=== PATIENT | female | born 1970 | race Caucasian/White ===

== ENCOUNTER 2017-03-07 21:45 | Emergency (ER) | payer MEDICARE, MEDICAID ==
[~2017-03-07] VITALS: Ht 170.2 cm; Wt 77.1 kg
[~2017-03-07 21:45] MED LIST: LISI10TA6; SIMV-8; TRIA25CA
[2017-03-07 21:48] VITALS: BP 133/90
== END 2017-03-07 22:14 | disposition left against medical advice (07) ==
LOC: ER 21:52
DX: M25.511 Pain in right shoulder (principal); W18.2XXA Fall in (into) shower or empty bathtub, initial encounter; Y93.E1 Activity, personal bathing and showering; Y99.8 Other external cause status; Y92.091 Bathroom in other non-institutional residence as the place of occurrence of the external cause; Z53.21 Procedure and treatment not carried out due to patient leaving prior to being seen by health care provider

== ENCOUNTER 2018-05-01 00:54 | Emergency (ER) | payer OTHER, MEDICAID ==
[~2018-05-01] VITALS: Ht 152.4 cm; Wt 77.1 kg
[2018-05-01] MEDS ORDERED: MORPHINE SULFATE 4 MG/ML SYR/VIAL IV ONE (02:30)
[2018-05-01] MEDS ORDERED: ONDANSETRON HCL 4 MG/2 ML VIAL IV ONE (02:30)
[2018-05-01] MEDS ORDERED: ETOMIDATE (2MG/ML) 20ML VIAL IV ONE ×2 (03:12→03:30)
[2018-05-01 06:45] VITALS: BP 118/54
[2018-05-01] MEDS ORDERED: HYDROcodone-ACET 5/325MG TAB PO ONE (07:30)
== END 2018-05-01 07:59 | disposition home or self-care (01) ==
LOC: ER 00:54 → EDBD 00:54 → ER 07:59
DX: S43.005A Unspecified dislocation of left shoulder joint, initial encounter (principal); J45.909 Unspecified asthma, uncomplicated; I10 Essential (primary) hypertension; E78.5 Hyperlipidemia, unspecified; Z91.030 Bee allergy status; F17.210 Nicotine dependence, cigarettes, uncomplicated; W19.XXXA Unspecified fall, initial encounter; Y93.89 Activity, other specified; Y99.8 Other external cause status; Y92.002 Bathroom of unspecified non-institutional (private) residence as the place of occurrence of the external cause
CPT/HCPCS: 23650; 73020; 73030; 73060; 96374; 96375; 99285; J2270; J2405

== ENCOUNTER 2018-06-23 12:22 | Emergency (ER) | payer OTHER, MEDICAID ==
[~2018-06-23] VITALS: Ht 154.9 cm; Wt 99.8 kg
[2018-06-23 14:35] VITALS: BP 124/77
[2018-06-23] MEDS ORDERED: ETOMIDATE (2MG/ML) 20ML VIAL IV ONE (14:45)
[2018-06-23] MEDS ORDERED: HYDROcodone-ACET 10/325MG TAB PO ONE (16:30)
== END 2018-06-23 17:12 | disposition home or self-care (01) ==
LOC: ER 12:24
DX: S43.004A Unspecified dislocation of right shoulder joint, initial encounter (principal); J45.909 Unspecified asthma, uncomplicated; E78.5 Hyperlipidemia, unspecified; I10 Essential (primary) hypertension; F41.9 Anxiety disorder, unspecified; F17.210 Nicotine dependence, cigarettes, uncomplicated; Z91.030 Bee allergy status; Z98.51 Tubal ligation status; X58.XXXA Exposure to other specified factors, initial encounter; Y93.89 Activity, other specified; Y92.89 Other specified places as the place of occurrence of the external cause; Y99.8 Other external cause status
CPT/HCPCS: 23650; 73020; 73030; 94761

== ENCOUNTER 2018-06-29 15:05 | Emergency (ER) | payer OTHER, MEDICAID ==
[~2018-06-29] VITALS: Ht 165.1 cm; Wt 90.7 kg
[2018-06-29 19:02] VITALS: BP 157/82
[2018-06-29] MEDS ORDERED: KETOROLAC TROMETH 60MG/2ML VIAL IM ONE (20:30)
[2018-06-29] MEDS ORDERED: HYDROcodone-ACET 10/325MG TAB PO ONE (20:30)
== END 2018-06-29 21:06 | disposition home or self-care (01) ==
LOC: EDBD 15:05 → ER 15:05
DX: S42.291D Other displaced fracture of upper end of right humerus, subsequent encounter for fracture with routine healing (principal); F17.210 Nicotine dependence, cigarettes, uncomplicated; I10 Essential (primary) hypertension; E78.5 Hyperlipidemia, unspecified; J45.909 Unspecified asthma, uncomplicated; Z79.899 Other long term (current) drug therapy; X58.XXXD Exposure to other specified factors, subsequent encounter
CPT/HCPCS: 73030; 96372; 99284; J1885

== ENCOUNTER 2018-07-24 10:39 | Emergency (ER) | payer OTHER, MEDICAID ==
[~2018-07-24] VITALS: Ht 154.9 cm; Wt 99.8 kg
[2018-07-24 10:58] VITALS: BP 117/67
[2018-07-24] MEDS ORDERED: ETOMIDATE (2MG/ML) 20ML VIAL IV ONE (12:00)
== END 2018-07-24 13:09 | disposition home or self-care (01) ==
LOC: ER 10:39 → EDBD 10:39 → ER 13:09
DX: S43.084A Other dislocation of right shoulder joint, initial encounter (principal); J45.909 Unspecified asthma, uncomplicated; E78.5 Hyperlipidemia, unspecified; I10 Essential (primary) hypertension; Z79.899 Other long term (current) drug therapy; X58.XXXA Exposure to other specified factors, initial encounter; Y93.89 Activity, other specified; Y99.8 Other external cause status; Y92.89 Other specified places as the place of occurrence of the external cause
CPT/HCPCS: 23650; 73020; 94761

== ENCOUNTER 2018-08-29 15:34 | Emergency (ER) | payer OTHER, MEDICAID ==
[~2018-08-29] VITALS: Ht 154.9 cm; Wt 101.2 kg
[2018-08-29] MEDS ORDERED: ONDANSETRON HCL 4 MG/2 ML VIAL IV ONE (16:15)
[2018-08-29] MEDS ORDERED: MORPHINE SULFATE 4 MG/ML SYR/VIAL IV ONE (16:15)
[2018-08-29] MEDS ORDERED: MIDAZOLAM HCL 1MG/1ML-2 ML VIAL IV ONE (16:15)
[2018-08-29 16:17] VITALS: BP 134/90
[2018-08-29] MEDS ORDERED: ETOMIDATE (2MG/ML) 20ML VIAL IV ONE ×2 (16:58→17:00)
[2018-08-29] MEDS ORDERED: HYDROcodone-ACET 10/325MG TAB PO ONE (17:15)
== END 2018-08-29 18:15 | disposition home or self-care (01) ==
LOC: ER 15:34 → EDBD 15:34 → ER 18:15
DX: S43.004A Unspecified dislocation of right shoulder joint, initial encounter (principal); J45.909 Unspecified asthma, uncomplicated; E78.5 Hyperlipidemia, unspecified; I10 Essential (primary) hypertension; F17.210 Nicotine dependence, cigarettes, uncomplicated; Z98.51 Tubal ligation status; Z79.899 Other long term (current) drug therapy; X58.XXXA Exposure to other specified factors, initial encounter; Y93.89 Activity, other specified; Y92.89 Other specified places as the place of occurrence of the external cause; Y99.8 Other external cause status
CPT/HCPCS: 23650; 73020; 73030; 96374; 96375; 99284; J2250; J2270; J2405

== ENCOUNTER 2019-10-20 18:42 | Emergency (ER) | payer OTHER, MEDICAID ==
[~2019-10-20] VITALS: Ht 154.9 cm; Wt 90.7 kg
[2019-10-20 19:07] VITALS: BP 111/67
[2019-10-20 19:40] LABS: Basophils # (auto) 0.1 uL; Eosinophils # (auto) 0.3 uL; Eosinophils % (auto) 2.6 % (0.0-7.0); Hemoglobin 11.6 g/dL (12.2-16.2); Lymphocytes # (auto) 3.6 uL; Lymphocytes % (auto) 34.7 % (10.0-50.0); Mean Corpuscular Hemoglobin 30.9 pg (28.0-32.0); Mean Corpuscular Hgb Conc. 33.1 g/dL (32.0-36.0); Mean Corpuscular Volume 93.3 fL (80.0-100.0); Monocytes # (auto) 0.9 uL; Monocytes % (auto) 8.5 % (0.0-12.0); Neutrophils # (auto) 5.5 uL; Neutrophils % (auto) 53.2 % (37.0-80.0); Platelet Count (auto) 274 10^3/uL (140-450); Red Blood Cells 3.75 10^6/uL (4.0-5.20); Red Cell Distribution Width 14.4 % (11.8-14.3); White Blood Cell 10.3 10^3/uL (4.4-10.8)
[2019-10-20 19:53] LABS: Alanine Aminotransferase 38 U/L (13-56); Albumin 3.4 g/dL (3.4-5.0); Anion Gap 7 (5-15); Aspartate Aminotransferase 24 U/L (15-37); BUN/Creatinine Ratio 20.5; Blood Urea Nitrogen 18 mg/dL (7-18); Calcium 8.8 mg/dL (8.5-10.1); Carbon Dioxide 27 mmol/L (21-32); Chloride 103 mmol/L (98-107); GFR African American 88 mL/min; GFR Non-African American 73 mL/min; Glucose 134 mg/dL (74-106); Potassium 3.7 mmol/L (3.5-5.1); Sodium 137 mmol/L (136-145)
[2019-10-20 19:58] LABS: Alkaline Phosphatase 58 U/L (45-117); Bilirubin, Total 0.2 mg/dL (0.2-1.0); INR 1.07 (0.9-1.15); Partial Thromboplastin Time 25.9 sec (23.64-32.05); Total Protein 7.8 g/dL (6.4-8.2)
== END 2019-10-20 22:23 | disposition left against medical advice (07) ==
LOC: EDBD 18:42 → ER 18:42
DX: R06.02 Shortness of breath (principal); Z53.21 Procedure and treatment not carried out due to patient leaving prior to being seen by health care provider
CPT/HCPCS: 36415; 80053; 83880; 84484; 85025; 85610; 85730; 93005; J7042

== ENCOUNTER 2021-01-20 20:41 | Inpatient (IN) | payer OTHER, MEDICAID ==
[~2021-01-20] VITALS: Ht 157.5 cm; Wt 112.0 kg
[~2021-01-20 20:41] MED LIST changes: +LISI-648; -LISI10TA6
[2021-01-20] MEDS ORDERED: LORazepam 2MG/ML-1ML VIAL IM ONE (21:00)
[2021-01-20] MEDS ORDERED: HALOPERIDOL LACTATE 5 MG/ML INJ VIAL IM ONE (21:00)
[2021-01-20] MEDS ORDERED: diphenhdrAMINE HCL 50 MG/1 ML VL IM ONE (21:00)
[2021-01-20] MEDS ORDERED: SODIUM CHLORIDE 0.9% 3,000 ML IV ONE (21:30)
[2021-01-20 22:14] LABS: Basophils # (auto) 0 10 ^3/uL (0-0.2); Eosinophils # (auto) 0 10 ^3/uL (0-0.8); Hematocrit 38.5 % (36.0-46.0); Hemoglobin 12.1 g/dL (12.2-16.2); Lymphocytes # (auto) 12.9 10 ^3/uL (0.4-5.4); Mean Corpuscular Hemoglobin 30.5 pg (28.0-32.0); Mean Corpuscular Hgb Conc. 31.3 g/dL (32.0-36.0); Mean Corpuscular Volume 97.4 fL (80.0-100.0); Monocytes # (auto) 4.3 10 ^3/uL (0-1.3); Monocytes % (auto) 16.7 % (0.0-12.0); Neutrophils # (auto) 8.6 10 ^3/uL (1.6-8.6); Neutrophils % (auto) 33.3 % (37.0-80.0); Nucleated Red Blood Cells % 0.1 %; Platelet Count (auto) 314 10^3/uL (140-450); Red Blood Cells 3.95 10^6/uL (4.0-5.20); White Blood Cell 25.7 10^3/uL (4.4-10.8)
[2021-01-20 22:29] LABS: Alanine Aminotransferase 112 U/L (13-56); Albumin 3.5 g/dL (3.4-5.0); Anion Gap 16 (5-15); Blood Alcohol < 3.0 mg/dL (0-5); Blood Urea Nitrogen 18 mg/dL (7-18); Calcium 8.5 mg/dL (8.5-10.1); Carbon Dioxide 19 mmol/L (21-32); Chloride 101 mmol/L (98-107); Potassium 4.6 mmol/L (3.5-5.1); Salicylate < 1.7 mg/dL (2.8-20.0); Sodium 136 mmol/L (136-145)
[2021-01-20 22:30] LABS: Acetaminophen < 2.0 ug/mL (10-30)
[2021-01-20 22:40] LABS: Alkaline Phosphatase 66 U/L (45-117); Aspartate Aminotransferase 102 U/L (15-37); BUN/Creatinine Ratio 11.5; Bilirubin, Total 0.2 mg/dL (0.2-1.0); GFR African American 45 mL/min; GFR Non-African American 37 mL/min; Total Protein 7.9 g/dL (6.4-8.2)
[2021-01-20 22:50] LABS: Glucose 479 mg/dL (74-106)
[2021-01-20 23:52] LABS: Urine Bacteria NONE SEEN /hpf (None Seen); Urine Blood 1+ /uL (Negative); Urine Mucus FEW (None Seen); Urine Specific Gravity 1.013 (1.001-1.035); Urine WBC 10 /hpf (0 - 5)
[2021-01-21 00:02] LABS: Alcohol, Urine < 3.0 mg/dL (0-10); Amphetamine Screen, Urine NEGATIVE (NEGATIVE); Barbiturate Scree,Urine NEGATIVE (NEGATIVE); Benzodiazephine Screen, Urine NEGATIVE (NEGATIVE); Cannabinoid Screen, Urine NEGATIVE (NEGATIVE); Cocaine Screen, Urine NEGATIVE (NEGATIVE); Opiate Scree,Urine NEGATIVE (NEGATIVE); Phencyclidine Screen, Urine NEGATIVE (NEGATIVE)
[2021-01-21] MEDS ORDERED: HYDROcodone-ACET 5/325MG TAB PO PRN (04:45)
[2021-01-21] MEDS ORDERED: NITROGLYCERIN 0.4 MG SL TAB SL PRN (04:45)
[2021-01-21] MEDS ORDERED: LORazepam 2MG/ML-1ML VIAL IV PRN (04:45)
[2021-01-21] MEDS ORDERED: ONDANSETRON HCL 4 MG/2 ML VIAL IV PRN (04:45)
[2021-01-21] MEDS ORDERED: DOCUSATE SOD 100 MG CAP PO PRN (04:45)
[2021-01-21] MEDS ORDERED: MORPHINE SULF INJ 2 MG/ML SYRINGE 1ML IV PRN (04:45)
[2021-01-21] MEDS ORDERED: DEXTROSE (50%) 50ML SYRG IV PRN (04:45)
[2021-01-21] MEDS: SODIUM CHLORIDE 0.9% 1,000 ML IV SCH ×2 (06:11→16:00)
[2021-01-21] MEDS: cefTRIAXone 1GM/50ML D5W 50 ML IV SCH (06:11)
[2021-01-21] MEDS: InsuLIN REG 1unit/0.01ml Soln (100units/ml) SC SCH ×4 (06:59→21:35)
[2021-01-21] MEDS: ACCU-CHEK COMFORT CURVE STRIP VI SCH ×4 (07:03→21:35)
[2021-01-21 07:16] LABS: Basophils # (auto) 0.1 10 ^3/uL (0-0.2); Basophils % (auto) 0.3 % (0.0-2.0); Eosinophils # (auto) 0 10 ^3/uL (0-0.8); Eosinophils % (auto) 0.1 % (0.0-7.0); Hematocrit 35.2 % (36.0-46.0); Hemoglobin 11.4 g/dL (12.2-16.2); Lymphocytes # (auto) 1.8 10 ^3/uL (0.4-5.4); Lymphocytes % (auto) 9.2 % (10.0-50.0); Mean Corpuscular Hemoglobin 30.5 pg (28.0-32.0); Mean Corpuscular Hgb Conc. 32.4 g/dL (32.0-36.0); Mean Corpuscular Volume 94.2 fL (80.0-100.0); Monocytes # (auto) 1.3 10 ^3/uL (0-1.3); Monocytes % (auto) 6.6 % (0.0-12.0); Neutrophils # (auto) 16.3 10 ^3/uL (1.6-8.6); Neutrophils % (auto) 83.8 % (37.0-80.0); Platelet Count (auto) 310 10^3/uL (140-450); Red Blood Cells 3.73 10^6/uL (4.0-5.20); Red Cell Distribution Width 14.7 % (11.8-14.3); White Blood Cell 19.5 10^3/uL (4.4-10.8)
[2021-01-21 07:32] LABS: Potassium 5.4 mmol/L (3.5-5.1)
[2021-01-21 07:39] LABS: Albumin 3.6 g/dL (3.4-5.0); BUN/Creatinine Ratio 12.3; Bilirubin, Total 0.1 mg/dL (0.2-1.0); Total Protein 7.8 g/dL (6.4-8.2)
[2021-01-21 09:00] VITALS: BP 141/76
[2021-01-21] MEDS ORDERED: FAMOTIDINE (10MG/ML) 2ML VL IV SCH (10:00)
[2021-01-21] MEDS ORDERED: HEPARIN SODIUM (PORCINE) 5000 UNITS/ML 1ML VIAL SC SCH (10:00)
[2021-01-21] MEDS: ASCORBIC ACID 500 MG TAB PO SCH ×2 (10:40→21:19)
[2021-01-21] MEDS: FAMOTIDINE 20 MG TAB PO SCH ×2 (10:40→21:18)
[2021-01-21] MEDS: MULTIPLE VITAMIN TAB PO SCH (10:40)
[2021-01-21] MEDS: ZINC SULFATE 220mg CAP or TAB PO SCH (10:40)
[2021-01-21] MEDS: ASPirin 81 mg TAB PO SCH (15:52)
[2021-01-21 17:00] VITALS: BP 135/85
[2021-01-21] MEDS ORDERED: METOPROLOL TARTRATE 25 MG TAB PO ONE (17:45)
[2021-01-21] MEDS: ENOXAPARIN SOD 150 MG/1 ML SYRINGE SC SCH (18:16)
[2021-01-21 18:24] VITALS: BP 135/85
[2021-01-21 21:29] LABS: Urine Bacteria NONE SEEN /hpf (None Seen); Urine Blood 3+ /uL (Negative); Urine Specific Gravity 1.014 (1.001-1.035); Urine WBC 15 /hpf (0 - 5)
[2021-01-21 21:40] LABS: Protein, Urine 76.4 mg/dL (0.0-11.9)
[2021-01-21 22:00] VITALS: BP 117/75
[2021-01-21] MEDS: ACETAMINOPHEN 325 MG TAB PO PRN (23:25)
[2021-01-22] MEDS: SODIUM CHLORIDE 0.9% 1,000 ML IV SCH ×3 (02:42→20:51)
[2021-01-22 05:00] VITALS: BP 130/76
[2021-01-22] MEDS: ENOXAPARIN SOD 150 MG/1 ML SYRINGE SC SCH ×2 (05:35→18:09)
[2021-01-22] MEDS: ACETAMINOPHEN 325 MG TAB PO PRN (05:36)
[2021-01-22] MEDS: ACCU-CHEK COMFORT CURVE STRIP VI SCH ×4 (06:20→21:43)
[2021-01-22] MEDS: InsuLIN REG 1unit/0.01ml Soln (100units/ml) SC SCH ×4 (06:28→21:43)
[2021-01-22 06:43] LABS: Basophils # (auto) 0.1 10 ^3/uL (0-0.2); Basophils % (auto) 0.5 % (0.0-2.0); Eosinophils # (auto) 0.2 10 ^3/uL (0-0.8); Eosinophils % (auto) 1.6 % (0.0-7.0); Hematocrit 32.3 % (36.0-46.0); Hemoglobin 10.5 g/dL (12.2-16.2); Lymphocytes # (auto) 2.4 10 ^3/uL (0.4-5.4); Lymphocytes % (auto) 17.5 % (10.0-50.0); Mean Corpuscular Hemoglobin 30.8 pg (28.0-32.0); Mean Corpuscular Hgb Conc. 32.6 g/dL (32.0-36.0); Mean Corpuscular Volume 94.5 fL (80.0-100.0); Monocytes # (auto) 0.9 10 ^3/uL (0-1.3); Monocytes % (auto) 6.9 % (0.0-12.0); Neutrophils % (auto) 73.5 % (37.0-80.0); Nucleated Red Blood Cells % 0.1 %; Platelet Count (auto) 244 10^3/uL (140-450); Red Blood Cells 3.42 10^6/uL (4.0-5.20); Red Cell Distribution Width 14.7 % (11.8-14.3); White Blood Cell 13.6 10^3/uL (4.4-10.8)
[2021-01-22 07:10] LABS: Calcium 8.4 mg/dL (8.5-10.1); Potassium 4.3 mmol/L (3.5-5.1)
[2021-01-22 07:13] LABS: Albumin 3.1 g/dL (3.4-5.0); BUN/Creatinine Ratio 26.9
[2021-01-22 07:16] LABS: Bilirubin, Total 0.2 mg/dL (0.2-1.0); Total Protein 7.5 g/dL (6.4-8.2)
[2021-01-22 08:00] VITALS: BP 135/85
[2021-01-22 08:30] VITALS: BP 140/78
[2021-01-22] MEDS: cefTRIAXone 1GM/50ML D5W 50 ML IV SCH (09:29)
[2021-01-22] MEDS: ASPirin 81 mg TAB PO SCH (09:29)
[2021-01-22] MEDS: METOPROLOL TARTRATE 25 MG TAB PO SCH ×2 (09:31→21:42)
[2021-01-22] MEDS: MULTIPLE VITAMIN TAB PO SCH (09:31)
[2021-01-22] MEDS: ASCORBIC ACID 500 MG TAB PO SCH ×2 (09:32→21:42)
[2021-01-22] MEDS: FAMOTIDINE 20 MG TAB PO SCH ×2 (09:32→21:42)
[2021-01-22] MEDS: ZINC SULFATE 220mg CAP or TAB PO SCH (10:00)
[2021-01-22 13:10] VITALS: BP 133/88
[2021-01-22 17:00] VITALS: BP 154/80
[2021-01-22] MEDS: ATORVASTATIN 20 MG TAB PO SCH (21:41)
[2021-01-22 21:56] VITALS: BP 129/68
[2021-01-23 05:00] VITALS: BP 145/78
[2021-01-23] MEDS: ENOXAPARIN SOD 150 MG/1 ML SYRINGE SC SCH (05:31)
[2021-01-23 05:57] LABS: Basophils # (auto) 0.1 10 ^3/uL (0-0.2); Basophils % (auto) 0.7 % (0.0-2.0); Eosinophils # (auto) 0.1 10 ^3/uL (0-0.8); Eosinophils % (auto) 0.8 % (0.0-7.0); Hemoglobin 10.4 g/dL (12.2-16.2); Lymphocytes # (auto) 1.9 10 ^3/uL (0.4-5.4); Lymphocytes % (auto) 18.7 % (10.0-50.0); Mean Corpuscular Hgb Conc. 32.6 g/dL (32.0-36.0); Mean Corpuscular Volume 94.8 fL (80.0-100.0); Monocytes % (auto) 9.5 % (0.0-12.0); Neutrophils # (auto) 7.3 10 ^3/uL (1.6-8.6); Neutrophils % (auto) 70.3 % (37.0-80.0); Nucleated Red Blood Cells % 0.2 %; Platelet Count (auto) 245 10^3/uL (140-450); Red Blood Cells 3.37 10^6/uL (4.0-5.20); Red Cell Distribution Width 14.6 % (11.8-14.3); White Blood Cell 10.4 10^3/uL (4.4-10.8)
[2021-01-23 06:13] LABS: Albumin 3.1 g/dL (3.4-5.0); Calcium 8.6 mg/dL (8.5-10.1); Magnesium 2.4 mg/dL (1.6-2.6); Potassium 4.1 mmol/L (3.5-5.1)
[2021-01-23 06:16] LABS: BUN/Creatinine Ratio 41.7; Bilirubin, Total 0.2 mg/dL (0.2-1.0); Total Protein 7.7 g/dL (6.4-8.2)
[2021-01-23] MEDS: ACCU-CHEK COMFORT CURVE STRIP VI SCH ×4 (06:26→22:32)
[2021-01-23] MEDS: SODIUM CHLORIDE 0.9% 1,000 ML IV SCH ×2 (06:27→16:45)
[2021-01-23] MEDS: InsuLIN REG 1unit/0.01ml Soln (100units/ml) SC SCH ×4 (06:27→22:00)
[2021-01-23 08:00] VITALS: BP 138/62
[2021-01-23 09:00] VITALS: BP 135/68
[2021-01-23] MEDS: cefTRIAXone 1GM/50ML D5W 50 ML IV SCH (09:00)
[2021-01-23] MEDS ORDERED: [UNRECOGNIZED DRUG - CODE] XX (12:26)
[2021-01-23] MEDS ORDERED: GEMF600T7 PO (12:26)
[2021-01-23 12:48] VITALS: BP 133/81
[2021-01-23] MEDS: ZINC SULFATE 220mg CAP or TAB PO SCH (14:27)
[2021-01-23] MEDS: ASPirin 81 mg TAB PO SCH (14:27)
[2021-01-23] MEDS: METOPROLOL TARTRATE 25 MG TAB PO SCH ×2 (14:28→22:00)
[2021-01-23] MEDS: ASCORBIC ACID 500 MG TAB PO SCH ×2 (14:28→22:00)
[2021-01-23] MEDS: FAMOTIDINE 20 MG TAB PO SCH ×2 (14:28→22:00)
[2021-01-23] MEDS: MULTIPLE VITAMIN TAB PO SCH (14:28)
[2021-01-23 17:00] VITALS: BP 144/74
[2021-01-23] MEDS: NEOMYCIN-POLYM-GRAM OPTH(EYE) SOL 10ML EACHEYE SCH ×2 (18:50→22:34)
[2021-01-23 22:00] VITALS: BP 128/70
[2021-01-23] MEDS: ATORVASTATIN 20 MG TAB PO SCH (22:00)
[2021-01-23] MEDS: ENOXAPARIN SOD 120 MG/0.8 ML SYRINGE SC SCH (22:00)
[2021-01-23] MEDS ORDERED: hydrALAZINE HCL 20 MG/ML VL IV PRN (23:00)
[2021-01-23] MEDS: FAMOTIDINE (10MG/ML) 2ML VL IV SCH (23:40)
[2021-01-24] VITALS (9 sets, daily range): BP systolic 137–161; BP diastolic 45–86
[2021-01-24] MEDS: NEOMYCIN-POLYM-GRAM OPTH(EYE) SOL 10ML EACHEYE SCH ×6 (02:00→22:06)
[2021-01-24] MEDS: SODIUM CHLORIDE 0.9% 1,000 ML IV SCH (05:02)
[2021-01-24 06:23] LABS: Basophils # (auto) 0.1 10 ^3/uL (0-0.2); Basophils % (auto) 0.9 % (0.0-2.0); Eosinophils # (auto) 0.1 10 ^3/uL (0-0.8); Hematocrit 31.1 % (36.0-46.0); Hemoglobin 10.7 g/dL (12.2-16.2); Lymphocytes # (auto) 1.6 10 ^3/uL (0.4-5.4); Lymphocytes % (auto) 17.4 % (10.0-50.0); Mean Corpuscular Hgb Conc. 34.4 g/dL (32.0-36.0); Mean Corpuscular Volume 93.1 fL (80.0-100.0); Monocytes % (auto) 11.2 % (0.0-12.0); Neutrophils # (auto) 6.5 10 ^3/uL (1.6-8.6); Neutrophils % (auto) 69.5 % (37.0-80.0); Nucleated Red Blood Cells % 0.2 %; Platelet Count (auto) 221 10^3/uL (140-450); Red Blood Cells 3.34 10^6/uL (4.0-5.20); Red Cell Distribution Width 14.1 % (11.8-14.3); White Blood Cell 9.3 10^3/uL (4.4-10.8)
[2021-01-24] MEDS: ACCU-CHEK COMFORT CURVE STRIP VI SCH ×4 (06:26→22:06)
[2021-01-24] MEDS: InsuLIN REG 1unit/0.01ml Soln (100units/ml) SC SCH ×4 (06:26→22:00)
[2021-01-24 06:38] LABS: Potassium 3.5 mmol/L (3.5-5.1)
[2021-01-24 06:42] LABS: Albumin 2.8 g/dL (3.4-5.0); BUN/Creatinine Ratio 46.9; Calcium 8.6 mg/dL (8.5-10.1); Magnesium 2.2 mg/dL (1.6-2.6)
[2021-01-24 06:45] LABS: Bilirubin, Total 0.3 mg/dL (0.2-1.0); Total Protein 7.1 g/dL (6.4-8.2)
[2021-01-24] MEDS: ZINC SULFATE 220mg CAP or TAB PO SCH (09:42)
[2021-01-24] MEDS: cefTRIAXone 1GM/50ML D5W 50 ML IV SCH (09:42)
[2021-01-24] MEDS: ASPirin 81 mg TAB PO SCH (09:42)
[2021-01-24] MEDS: FAMOTIDINE (10MG/ML) 2ML VL IV SCH ×2 (09:42→22:06)
[2021-01-24] MEDS: METOPROLOL TARTRATE 25 MG TAB PO SCH ×2 (09:43→22:00)
[2021-01-24] MEDS: MULTIPLE VITAMIN TAB PO SCH (09:43)
[2021-01-24] MEDS: ASCORBIC ACID 500 MG TAB PO SCH ×2 (09:45→22:00)
[2021-01-24] MEDS: ENOXAPARIN SOD 120 MG/0.8 ML SYRINGE SC SCH (09:45)
[2021-01-24] MEDS ORDERED: FAMOTIDINE (10MG/ML) 2ML VL IV SCH (10:00)
[2021-01-24] MEDS: ENOXAPARIN SOD 40 MG/0.4 ML SYRINGE SC SCH (11:15)
[2021-01-24] MEDS: levoFLOXacin 500MG 100 ML IV SCH (12:36)
[2021-01-24] MEDS: FUROSEMIDE 40 MG/4 ML VIAL IV SCH ×2 (12:36→17:29)
[2021-01-24 13:36] LABS: Alcohol, Urine < 3.0 mg/dL (0-10); Amphetamine Screen, Urine NEGATIVE (NEGATIVE); Barbiturate Scree,Urine NEGATIVE (NEGATIVE); Benzodiazephine Screen, Urine NEGATIVE (NEGATIVE); Cannabinoid Screen, Urine NEGATIVE (NEGATIVE); Cocaine Screen, Urine NEGATIVE (NEGATIVE); Opiate Scree,Urine NEGATIVE (NEGATIVE); Phencyclidine Screen, Urine NEGATIVE (NEGATIVE)
[2021-01-24] MEDS: SOD CHL 0.45% WITH 20MEQ KCL 1,000 ML IV SCH (14:30)
[2021-01-24] MEDS: ATORVASTATIN 20 MG TAB PO SCH (22:00)
[2021-01-25] VITALS (34 sets, daily range): BP systolic 102–158; BP diastolic 52–85
[2021-01-25 00:02] LABS: Basophils # (auto) 0.1 10 ^3/uL (0-0.2); Basophils % (auto) 0.6 % (0.0-2.0); Eosinophils # (auto) 0.2 10 ^3/uL (0-0.8); Eosinophils % (auto) 1.4 % (0.0-7.0); Hemoglobin 9.9 g/dL (12.2-16.2); Lymphocytes # (auto) 1.7 10 ^3/uL (0.4-5.4); Mean Corpuscular Hemoglobin 30.6 pg (28.0-32.0); Mean Corpuscular Hgb Conc. 33.1 g/dL (32.0-36.0); Mean Corpuscular Volume 92.3 fL (80.0-100.0); Monocytes # (auto) 1.4 10 ^3/uL (0-1.3); Monocytes % (auto) 12.9 % (0.0-12.0); Neutrophils # (auto) 7.7 10 ^3/uL (1.6-8.6); Neutrophils % (auto) 70.1 % (37.0-80.0); Nucleated Red Blood Cells % 0.1 %; Platelet Count (auto) 225 10^3/uL (140-450); Red Blood Cells 3.25 10^6/uL (4.0-5.20); Red Cell Distribution Width 13.9 % (11.8-14.3)
[2021-01-25 00:16] LABS: INR 1.17 (0.9-1.15); Partial Thromboplastin Time 21.4 sec (23.0-31.2)
[2021-01-25 00:22] LABS: Alanine Aminotransferase 46 U/L (13-56); Albumin 2.7 g/dL (3.4-5.0); Anion Gap 10 (5-15); Aspartate Aminotransferase 19 U/L (15-37); BUN/Creatinine Ratio 42.2; Blood Urea Nitrogen 19 mg/dL (7-18); Calcium 8.7 mg/dL (8.5-10.1); Carbon Dioxide 24 mmol/L (21-32); Chloride 109 mmol/L (98-107); GFR African American 189 mL/min; GFR Non-African American 156 mL/min; Glucose 124 mg/dL (74-106); Sodium 143 mmol/L (136-145)
[2021-01-25 00:25] LABS: Alkaline Phosphatase 52 U/L (45-117); Bilirubin, Total 0.3 mg/dL (0.2-1.0)
[2021-01-25 00:29] LABS: Potassium 2.8 mmol/L (3.5-5.1)
[2021-01-25] MEDS: SOD CHL 0.45% WITH 20MEQ KCL 1,000 ML IV SCH ×2 (00:30→21:20)
[2021-01-25] MEDS: POTASSIUM CHL 20MEQ/100ML 100 ML IV SCH ×3 (01:45→06:15)
[2021-01-25] MEDS: NEOMYCIN-POLYM-GRAM OPTH(EYE) SOL 10ML EACHEYE SCH ×6 (02:45→21:20)
[2021-01-25] MEDS: InsuLIN REG 1unit/0.01ml Soln (100units/ml) SC SCH ×4 (05:58→21:21)
[2021-01-25] MEDS: ACCU-CHEK COMFORT CURVE STRIP VI SCH ×4 (05:58→21:21)
[2021-01-25] MEDS: FUROSEMIDE 40 MG/4 ML VIAL IV SCH ×2 (06:00→17:44)
[2021-01-25 09:30] LABS: Basophils # (auto) 0 10 ^3/uL (0-0.2); Basophils % (auto) 0.4 % (0.0-2.0); Eosinophils # (auto) 0.3 10 ^3/uL (0-0.8); Eosinophils % (auto) 2.6 % (0.0-7.0); Hematocrit 30.8 % (36.0-46.0); Hemoglobin 10.2 g/dL (12.2-16.2); Lymphocytes # (auto) 1.6 10 ^3/uL (0.4-5.4); Lymphocytes % (auto) 15.4 % (10.0-50.0); Mean Corpuscular Hemoglobin 30.3 pg (28.0-32.0); Mean Corpuscular Hgb Conc. 33.2 g/dL (32.0-36.0); Mean Corpuscular Volume 91.2 fL (80.0-100.0); Monocytes # (auto) 1.3 10 ^3/uL (0-1.3); Monocytes % (auto) 12.9 % (0.0-12.0); Neutrophils # (auto) 7.2 10 ^3/uL (1.6-8.6); Neutrophils % (auto) 68.7 % (37.0-80.0); Nucleated Red Blood Cells % 0.1 %; Platelet Count (auto) 251 10^3/uL (140-450); Red Blood Cells 3.37 10^6/uL (4.0-5.20); Red Cell Distribution Width 13.7 % (11.8-14.3); White Blood Cell 10.4 10^3/uL (4.4-10.8)
[2021-01-25] MEDS: cefTRIAXone 1GM/50ML D5W 50 ML IV SCH (09:38)
[2021-01-25] MEDS: ASCORBIC ACID 500 MG TAB PO SCH ×2 (10:00→21:21)
[2021-01-25] MEDS: ZINC SULFATE 220mg CAP or TAB PO SCH (10:00)
[2021-01-25] MEDS: MULTIPLE VITAMIN TAB PO SCH (10:00)
[2021-01-25] MEDS: ASPirin 81 mg TAB PO SCH (10:00)
[2021-01-25] MEDS: METOPROLOL TARTRATE 25 MG TAB PO SCH ×2 (10:00→21:20)
[2021-01-25 10:07] LABS: Alanine Aminotransferase 43 U/L (13-56); Alkaline Phosphatase 52 U/L (45-117); Anion Gap 8 (5-15); Aspartate Aminotransferase 11 U/L (15-37); BUN/Creatinine Ratio 37.8; Bilirubin, Total 0.4 mg/dL (0.2-1.0); Blood Urea Nitrogen 17 mg/dL (7-18); Calcium 8.9 mg/dL (8.5-10.1); Carbon Dioxide 29 mmol/L (21-32); Chloride 107 mmol/L (98-107); GFR African American 189 mL/min; GFR Non-African American 156 mL/min; Glucose 118 mg/dL (74-106); Phosphorus 1.4 mg/dL (2.5-4.90); Potassium 3.1 mmol/L (3.5-5.1); Sodium 144 mmol/L (136-145)
[2021-01-25 10:08] LABS: Albumin 2.7 g/dL (3.4-5.0); Magnesium 1.9 mg/dL (1.6-2.6); Total Protein 7.2 g/dL (6.4-8.2)
[2021-01-25] MEDS: levoFLOXacin 500MG 100 ML IV SCH (12:21)
[2021-01-25] MEDS: FAMOTIDINE (10MG/ML) 2ML VL IV SCH ×2 (12:22→21:20)
[2021-01-25] MEDS: ENOXAPARIN SOD 40 MG/0.4 ML SYRINGE SC SCH (12:39)
[2021-01-25] MEDS: METOPROLOL TARTRATE 1MG/1ML-5ML VIAL IV SCH ×2 (13:09→17:45)
[2021-01-25] MEDS: ATORVASTATIN 20 MG TAB PO SCH (21:20)
[2021-01-26] VITALS (18 sets, daily range): BP systolic 130–169; BP diastolic 57–90
[2021-01-26] MEDS: NEOMYCIN-POLYM-GRAM OPTH(EYE) SOL 10ML EACHEYE SCH ×6 (02:00→21:49)
[2021-01-26 04:50] LABS: Basophils # (auto) 0.1 10 ^3/uL (0-0.2); Basophils % (auto) 0.8 % (0.0-2.0); Eosinophils # (auto) 0.4 10 ^3/uL (0-0.8); Eosinophils % (auto) 4.1 % (0.0-7.0); Hematocrit 29.2 % (36.0-46.0); Lymphocytes # (auto) 1.8 10 ^3/uL (0.4-5.4); Lymphocytes % (auto) 20.4 % (10.0-50.0); Mean Corpuscular Hemoglobin 31.2 pg (28.0-32.0); Mean Corpuscular Hgb Conc. 34.1 g/dL (32.0-36.0); Mean Corpuscular Volume 91.3 fL (80.0-100.0); Monocytes # (auto) 1.1 10 ^3/uL (0-1.3); Neutrophils # (auto) 5.7 10 ^3/uL (1.6-8.6); Neutrophils % (auto) 62.7 % (37.0-80.0); Nucleated Red Blood Cells % 0.1 %; Platelet Count (auto) 242 10^3/uL (140-450); Red Cell Distribution Width 13.5 % (11.8-14.3)
[2021-01-26 05:00] LABS: Calcium 9.1 mg/dL (8.5-10.1)
[2021-01-26 05:05] LABS: Albumin 2.5 g/dL (3.4-5.0); BUN/Creatinine Ratio 53.6; Bilirubin, Total 0.4 mg/dL (0.2-1.0); Total Protein 6.7 g/dL (6.4-8.2)
[2021-01-26 05:12] LABS: Potassium 2.8 mmol/L (3.5-5.1)
[2021-01-26] MEDS: METOPROLOL TARTRATE 1MG/1ML-5ML VIAL IV SCH ×3 (06:00→12:00)
[2021-01-26] MEDS: FUROSEMIDE 40 MG/4 ML VIAL IV SCH (06:00)
[2021-01-26] MEDS: ACCU-CHEK COMFORT CURVE STRIP VI SCH ×4 (06:42→21:49)
[2021-01-26] MEDS: InsuLIN REG 1unit/0.01ml Soln (100units/ml) SC SCH ×4 (06:42→21:49)
[2021-01-26] MEDS: POTASSIUM CHL 20MEQ/100ML 100 ML IV SCH ×3 (09:17→14:01)
[2021-01-26] MEDS: SOD CHL 0.45% WITH 20MEQ KCL 1,000 ML IV SCH (09:17)
[2021-01-26] MEDS: cefTRIAXone 1GM/50ML D5W 50 ML IV SCH (09:18)
[2021-01-26] MEDS ORDERED: POTASSIUM PHOSPHATE 44 MEQ in D5W 5% 250 ML IV ONE (10:30)
[2021-01-26] MEDS ORDERED: POTASSIUM CHLORIDE 10 MEQ in SOD CHL 0.45% WITH 20MEQ KCL 1,000 ML IV SCH (10:30)
[2021-01-26] MEDS ORDERED: POTASSIUM CHLORIDE 10 MEQ in SOD CHL 0.45% 1,000 ML IV SCH (10:45)
[2021-01-26] MEDS: levoFLOXacin 500MG 100 ML IV SCH (10:50)
[2021-01-26] MEDS: METOPROLOL TARTRATE 25 MG TAB PO SCH ×2 (10:51→21:49)
[2021-01-26] MEDS: ENOXAPARIN SOD 40 MG/0.4 ML SYRINGE SC SCH (10:51)
[2021-01-26] MEDS: MULTIPLE VITAMIN TAB PO SCH (10:51)
[2021-01-26] MEDS: ASPirin 81 mg TAB PO SCH (10:51)
[2021-01-26] MEDS: ASCORBIC ACID 500 MG TAB PO SCH (10:51)
[2021-01-26] MEDS: ZINC SULFATE 220mg CAP or TAB PO SCH (10:52)
[2021-01-26] MEDS: FAMOTIDINE (10MG/ML) 2ML VL IV SCH (10:52)
[2021-01-26] MEDS: FUROSEMIDE 40 MG TAB PO SCH (18:41)
[2021-01-26] MEDS: ATORVASTATIN 20 MG TAB PO SCH (21:48)
[2021-01-26] MEDS: ACETAMINOPHEN 325 MG TAB PO PRN (21:50)
[2021-01-27] VITALS (7 sets, daily range): BP systolic 127–158; BP diastolic 79–103
[2021-01-27] MEDS: NEOMYCIN-POLYM-GRAM OPTH(EYE) SOL 10ML EACHEYE SCH ×6 (01:56→21:35)
[2021-01-27] MEDS: ACETAMINOPHEN 325 MG TAB PO PRN ×2 (02:22→19:24)
[2021-01-27] MEDS ORDERED: POTASSIUM CHL 20MEQ/100ML 100 ML IV SCH (04:15)
[2021-01-27] MEDS ORDERED: POTASSIUM CHL 20 Meq TABLET PO ONE (04:15)
[2021-01-27] MEDS: ACCU-CHEK COMFORT CURVE STRIP VI SCH ×4 (05:54→21:36)
[2021-01-27] MEDS: FUROSEMIDE 40 MG TAB PO SCH (05:54)
[2021-01-27] MEDS: InsuLIN REG 1unit/0.01ml Soln (100units/ml) SC SCH ×4 (06:02→21:52)
[2021-01-27] MEDS ORDERED: POTASSIUM CHLORIDE 40 MEQ, LIDOCAINE 1% (LOCAL ANESTH.) 4 ML in SODIUM CHL 0.9% 250 ML IV ONE (06:45)
[2021-01-27] MEDS ORDERED: POTASSIUM EFFERVESENT TAB 25 MEQ PO ONE (10:15)
[2021-01-27] MEDS: ASPirin 81 mg TAB PO SCH (10:17)
[2021-01-27] MEDS: MULTIPLE VITAMIN TAB PO SCH (10:25)
[2021-01-27] MEDS: METOPROLOL TARTRATE 25 MG TAB PO SCH ×2 (10:25→21:35)
[2021-01-27] MEDS: cefTRIAXone 1GM/50ML D5W 50 ML IV SCH (10:27)
[2021-01-27] MEDS: ENOXAPARIN SOD 40 MG/0.4 ML SYRINGE SC SCH (10:27)
[2021-01-27 17:33] LABS: Magnesium 1.8 mg/dL (1.6-2.6); Potassium 3.3 mmol/L (3.5-5.1)
[2021-01-27] MEDS: ATORVASTATIN 20 MG TAB PO SCH (21:35)
[2021-01-27] MEDS: LISINOPRIL 10 MG TAB PO SCH (21:36)
[2021-01-27] MEDS: MAGNESIUM OXIDE 400 MG TAB PO SCH (21:36)
[2021-01-28] MEDS: NEOMYCIN-POLYM-GRAM OPTH(EYE) SOL 10ML EACHEYE SCH ×4 (01:54→13:15)
[2021-01-28] MEDS: ACETAMINOPHEN 325 MG TAB PO PRN ×2 (04:13→10:44)
[2021-01-28 05:00] VITALS: BP 143/105
[2021-01-28] MEDS: ACCU-CHEK COMFORT CURVE STRIP VI SCH ×2 (06:18→13:13)
[2021-01-28] MEDS: InsuLIN REG 1unit/0.01ml Soln (100units/ml) SC SCH ×2 (06:19→13:14)
[2021-01-28 08:12] LABS: Calcium 9.4 mg/dL (8.5-10.1); Potassium 3.4 mmol/L (3.5-5.1)
[2021-01-28 08:15] LABS: Bilirubin, Total 0.3 mg/dL (0.2-1.0); Phosphorus 3.8 mg/dL (2.5-4.90); Total Protein 7.6 g/dL (6.4-8.2)
[2021-01-28 09:00] VITALS: BP 146/84
[2021-01-28] MEDS ORDERED: FUROSEMIDE 40 MG TAB PO SCH (10:00)
[2021-01-28] MEDS ORDERED: POTASSIUM CHL 20 Meq TABLET PO SCH (10:00)
[2021-01-28] MEDS: MAGNESIUM OXIDE 400 MG TAB PO SCH (10:37)
[2021-01-28] MEDS: LISINOPRIL 10 MG TAB PO SCH (10:39)
[2021-01-28] MEDS: METOPROLOL TARTRATE 25 MG TAB PO SCH (10:41)
[2021-01-28] MEDS: MULTIPLE VITAMIN TAB PO SCH (10:44)
[2021-01-28] MEDS: ASPirin 81 mg TAB PO SCH (10:44)
[2021-01-28] MEDS: ENOXAPARIN SOD 40 MG/0.4 ML SYRINGE SC SCH (10:45)
[2021-01-28 12:23] VITALS: BP 146/84
[2021-01-28 13:00] VITALS: BP 161/98
== END 2021-01-28 14:00 | DRG 917 ==
LOC: EDBD 20:41 → ER 20:41 → TELE 20:42 → TELE-CENTR 01-21 07:58 → ICU WEST 01-24 22:20 → TELE-WESTW 01-26 23:44
PROVIDERS: ADMIT Nurse Practitioner Family; ATTEND Internal Medicine
PROC: 05HC33Z Insertion of Infusion Device into Left Basilic Vein, Percutaneous Approach (ICD-10-PCS; principal; 2021-01-22)
PROC: B54NZZA Ultrasonography of Left Upper Extremity Veins, Guidance (ICD-10-PCS; 2021-01-22)
DX: T40.601A Poisoning by unspecified narcotics, accidental (unintentional), initial encounter (principal); N17.0 Acute kidney failure with tubular necrosis; J18.9 Pneumonia, unspecified organism; J96.01 Acute respiratory failure with hypoxia; G92 Toxic encephalopathy; A41.9 Sepsis, unspecified organism; I21.9 Acute myocardial infarction, unspecified; N39.0 Urinary tract infection, site not specified; G93.1 Anoxic brain damage, not elsewhere classified; J81.1 Chronic pulmonary edema; J98.11 Atelectasis; Z68.42 Body mass index [BMI] 45.0-49.9, adult; Z20.822 Contact with and (suspected) exposure to COVID-19; E66.01 Morbid (severe) obesity due to excess calories; N18.31 Chronic kidney disease, stage 3a; I13.10 Hypertensive heart and chronic kidney disease without heart failure, with stage 1 through stage 4 chronic kidney disease, or unspecified chronic kidney disease; E11.65 Type 2 diabetes mellitus with hyperglycemia; G93.0 Cerebral cysts; J45.909 Unspecified asthma, uncomplicated; F41.9 Anxiety disorder, unspecified; E11.22 Type 2 diabetes mellitus with diabetic chronic kidney disease; E78.00 Pure hypercholesterolemia, unspecified; Y92.89 Other specified places as the place of occurrence of the external cause
CPT/HCPCS: 36415; 36600; 70450; 70551; 71045; 80053; 80307; 80320; 80329; 81001; 82140; 82570; 82805; 82962; 83036; 83605; 83615; 83735; 83880; 84100; 84132; 84156; 84300; 84443; 84484; 85025; 85379; 85610; 85730; 87040; 87081; 87426; 87804; 92610; 93005; 93306; 95819; 96361; 96365; 96372; 97110; 97116; 97530; G0378; J0696; J1815; J1956; J2001; J2405; J3480; J3490; J7060

== ENCOUNTER 2022-10-29 11:13 | Emergency (ER) | payer OTHER, MEDICAID ==
[~2022-10-29] VITALS: Ht 154.9 cm; Wt 114.0 kg
[~2022-10-29 11:13] MED LIST changes: +GEMF-19 PO; -LISI-648; +LISI-716
[2022-10-29 13:15] VITALS: BP 118/94
[2022-10-29] MEDS ORDERED: HYDROcodone-ACET 10/325MG TAB PO ONE (13:45)
[2022-10-29] MEDS ORDERED: IBUP600T27 PO (17:17)
== END 2022-10-29 17:37 | disposition home or self-care (01) ==
LOC: ER 11:13
DX: M23.92 Unspecified internal derangement of left knee (principal); F41.9 Anxiety disorder, unspecified; J45.909 Unspecified asthma, uncomplicated; E78.5 Hyperlipidemia, unspecified; I10 Essential (primary) hypertension; F17.210 Nicotine dependence, cigarettes, uncomplicated; Z91.030 Bee allergy status; Z79.899 Other long term (current) drug therapy
CPT/HCPCS: 73562

== ENCOUNTER 2025-08-22 08:37 | Emergency (ER) | payer OTHER, MEDICAID ==
[~2025-08-22] VITALS: Ht 154.9 cm; Wt 112.7 kg
[~2025-08-22 08:37] MED LIST changes: -GEMF-19 PO; +GEMF-66 PO; +IBUP-1454 PO; -LISI-716; +LISI10TA34; -SIMV-8; +SIMV20TA20
--- NOTE | 2025-08-22 09:10 | ED.PDOC ---
History of Present Illness HPI Comments 51-year-old female came to the ER stating that she has been having back pain which started this morning. Denies any kind of trauma or heavy lifting. Apart from back pain she is complaining of shortness a breath especially when walking. Denies taking water pill. History of hypertension. Blood pressure elevated on arrival. Denies chest pain. Denies any other symptoms. Chief Complaint: Back Pain Time Seen by MD: 08:46 Primary Care Provider: PIETROO Reviewed Notes: Nurses Notes, Medications, Allergies Allergies: Uncoded Allergies: BEE STINGS. (Allergy, Unknown, 07/24/18) Home Meds Active Scripts Ibuprofen (Ibuprofen) 600 Mg Tab, 1 TAB PO TID, #40 TAB Prov:DANIEL FRYE Victorino PAC 10/29/22 Reported Medications Gemfibrozil (Gemfibrozil) 600 Mg Tab, 600 MG PO DAILY for 30 Days, MG 01/23/21 Lisinopril (Lisinopril) 10 Mg Tab 09/03/12 Hydrochlorothiazide W/Triamter (Hctz/Triamterene) 1 Cap Cap 09/03/12 Simvastatin (Simvastatin) 20 Mg Tab 09/03/12 Information Source: Patient Mode of Arrival: Ambulatory Severity: Moderate Timing: Hours Duration: Since onset Past Medical History PAST MEDICAL HISTORY: Anxiety, Asthma, High Lipids, HTN Surgical History: Tubal Ligation NURSING TECHNICIAN History: Denies all NURSING TECHNICIAN Hx Family History Family History: No family hx of HTN Social History Smoker: Cigarettes, Less Than 1 Pack/Day Alcohol: Occasionally Drugs: Denies Drug Use Lives In: Home Constitutional: denies: chills, diaphoresis, fatigue, fever, malaise, sweats, weakness, others EENTM: denies: blurred vision, double vision, ear bleeding, ear discharge, ear drainage, ear pain, ear ringing, eye pain, eye redness, hearing loss, mouth pain, mouth swelling, nasal discharge, nose bleeding, nose congestion, nose pain, photophobia, tearing, throat pain, throat swelling, voice changes, others Respiratory: denies: cough, hemoptysis, orthopnea, SOB at rest, shortness of breath, SOB with excertion, stridor, wheezing, others Cardiovascular: denies: chest pain, dizzy spells, diaphoresis, Dyspnea on exertion, edema, irregular heart beat, left arm pain, lightheadedness, palpitations, PND, syncope, others Gastrointestinal: denies: abdomen distended, abdominal pain, blood streaked bowels, constipated, diarrhea, dysphagia, difficulty swallowing, hematemesis, melena, nausea, poor appetite, poor fluid intake, rectal bleeding, rectal pain, vomiting, others Genitourinary: denies: abnormal vagina bleeding, burning, dyspareunia, dysuria, flank pain, frequency, hematuria, incontinence, pain, , vagina discharge, urgency, others Neurological: denies: dizziness, fainting, headache, left sided numbness, left sided weakness, numbness, paresthesia, pre-existing deficit, right sided num bness, right sided weakness, seizure, speech problems, tingling, tremors, weakness, others Musculoskeletal: reports: back pain; denies: gout, joint pain, joint swelling, muscle pain, muscle stiffness, neck pain, others Integumetry: denies: bruises, change in color, change in hair/nails, dryness, laceration, lesions, lumps, rash, wounds, others Allergic/Immunocompromised: denies: Difficulty Healing, Frequent Infections, Hi ves, Itching, others Hematologic/Lymphatic: denies: anemia, blood clots, easy bleeding, easy bruising, swollen glands, others Endocrine: denies: excessive hunger, excessive sweating, excessive thirst, excessive urination, flushing, intolerance to cold, intolerance to heat, unexplained weight gain, unexplained weight loss, others Psychiatric: denies: anxiety, bipolar disorder, depression, hopeless, panic disorder, schizophrenia, sleepless, suicidal, others Physical Exam General Appearance: Moderate Distress HEENT: Normal ENT Inspection, Pharynx Normal, TMs Normal Neck: Full Range of Motion, Non-Tender, Normal, Normal Inspection Respiratory: Chest Non-Tender, Lungs Clear, No Accessory Muscle Use, No Respiratory Distress, Normal Breath Sounds Cardiovascular: No Edema, No JVD, No Murmur, No Gallop, Normal Peripheral Pulses, Regular Rate/Rhythm Breast Exam: Deferred Gastrointestinal: No Organomegaly, Non Tender, No Pulsatile Mass, Normal Bowel Sounds, Soft Genitalia: Deferred Pelvic: Deferred Rectal: Deferred Extremities: No calf tenderness, Normal capillary refill, Normal inspection, Normal range of motion, Non-tender, No pedal edema Musculoskeletal : Apperance: Normal Neurologic: Alert, lining closer II-XII nml as Tested, No Motor Deficits, Normal Affect, Normal Mood, No Sensory Deficits Cerebellar Function: Normal Reflexes: Normal Skin: Dry, Normal Color, Warm Peripheral Pulses: 3+ Radial (R), 3+ Radial (L) Lymphatic: No Adenopathy Was a procedure done? Was a procedure done?: No Differential Dx Considerations may include: Muscle strain Urinary tract infection X-Ray, Labs, Meds, VS Vital Signs Date Time Temp Pulse Resp B/P (MAP) Pulse Ox O2 Delivery O2 Flow Rate FiO2 08/22/25 12:22 98.1 87 16 145/89 (107) 94 98.1 08/22/25 12:22 145/88 08/22/25 11:11 159/95 08/22/25 11:06 75 13 95 Room Air* 0 21 08/22/25 11:06 98.2 75 13 159/95 (116) 95 98.2 08/22/25 09:45 75 159/95 08/22/25 09:31 18 95 Room Air* 0 21 08/22/25 09:13 98.3 84 16 161/114 (130) 93 98.3 08/22/25 09:13 84 16 93 Room Air 08/22/25 08:39 97.8 86 15 192/113 98 97.8 Lab Test 08/22/25 11:25 08/22/25 09:24 Range/Units Urine Color Light-yellow Yellow Urine Clarity Clear Clear Urine pH 6.0 5.0-9.0 Urine Specific [place] 1.014 1.001-1.035 Urine Protein 1+ H Negative Urine Ketones Negative Negative Urine Blood Negative Negative /uL Urine Nitrite Negative Negative Urine Bilirubin Negative Negative Urine Urobilinogen Normal Negative mg/dL Urine Leukocyte Esterase Negative Negative /uL Urine RBC 1 0 - 4 /hpf Urine Microscopic WBC 3 0-5 /HPF Urine Squamous Epithelial Cells Few <5 /hpf Urine Bacteria Few H None Seen /hpf Urine Glucose Normal Normal mg/dL White Blood Count 10.9 H 4.4-10.8 10^3/uL Red Blood Count 4.89 4.0-5.20 10^6/uL Hemoglobin 14.4 12.2-16.2 g/dL Hematocrit 42.6 36.0-46.0 % Mean Corpuscular Volume 87.0 80.0-100.0 fL Mean Corpuscular Hemoglobin 29.3 28.0-32.0 pg Mean Corpuscular Hemoglobin Concent 33.7 32.0-36.0 g/dL Red Cell Distribution Width 13.7 11.8-14.3 % Platelet Count 288 140-450 10^3/uL Mean Platelet Volume 10.0 6.9-10.8 fL Neutrophils (%) (Auto) 57.2 37.0-80.0 % Lymphocytes (%) (Auto) 31.1 10.0-50.0 % Monocytes (%) (Auto) 6.0 0.0-12.0 % Eosinophils (%) (Auto) 4.4 0.0-7.0 % Basophils (%) (Auto) 1.3 0.0-2.0 % Neutrophils # (Auto) 6.2 1.6-8.6 10 ^3/uL Lymphocytes # (Auto) 3.4 0.4-5.4 10 ^3/uL Monocytes # (Auto) 0.7 0-1.3 10 ^3/uL Eosinophils # (Auto) 0.5 0-0.8 10 ^3/uL Basophils # (Auto) 0.1 0-0.2 10 ^3/uL Nucleated Red Blood Cells 0.2 % D-Dimer, Quantitative 0.21 0.0-0.49 mg/L FEU Sodium Level 140 136-145 mmol/L Potassium Level 4.0 3.5-5.1 mmol/L Chloride Level 106 98-107 mmol/L Carbon Dioxide Level 27 20-31 mmol/L Anion Gap 7 5-15 Blood Urea Nitrogen 11 9-23 mg/dL Creatinine 0.62 0.550-1.02 mg/dL Glomerular Filtration Rate Calc 105 >90 mL/min BUN/Creatinine Ratio 17.7 10.0-20.0 Serum Glucose 83 74-106 mg/dL Calcium Level 9.6 8.7-10.4 mg/dL Troponin I High Sensitivity 6 </=34 ng/L Current Medications Medications (Trade) Dose Ordered Sig/Yasmine Route Start Time Stop Time Status Last Admin Acetaminophen/ Hydrocodone Bitart ([place] 5/325MG Tab) 1 tab ONCE ONCE PO 08/22/25 09:15 08/22/25 09:16 DC 08/22/25 09:47 Methylprednisolone Sodium Succinate (Solu Medrol) 125 mg ONCE ONCE IV 08/22/25 09:15 08/22/25 09:16 DC 08/22/25 11:03 Albuterol (Ventolin Medneb) 5 mg ONCE ONCE NEB 08/22/25 09:15 08/22/25 09:16 DC 08/22/25 09:31 Ipratropium [place] (Atrovent Medneb) 0.5 mg ONCE ONCE NEB 08/22/25 09:15 08/22/25 09:16 DC 08/22/25 09:31 Clonidine HCl (Catapres Tablet) 0.2 mg ONCE ONCE PO 08/22/25 11:15 08/22/25 11:16 DC 08/22/25 11:11 Patient alert. Came in because of back pain. Vitals stable. Answering questions. Denies any trauma. Blood pressure elevated. Saturation pristine on room air. No leg swelling. Was given clonidine. Explained to the patient. Continue monitoring. Time of 1ST Reevaluation: 09:07 Reevaluation 1ST: Unchanged Patient Education/Counseling: Diagnosis, Treatment, Prognosis, Need For Follow Up Family Education/Counseling: No Family Present SEPSIS Sepsis Screen Date sepsis recognized/suspect: Aug 22, 2025 Time Sepsis recognized/suspect: 0841 Recent Procedure: No On Antibiotic Therapy: No Respiratory Rate >20: No Heart Rate >90: No Temp<36 C (96.8 F) or >38.3 C: No SBP <90 or MAP <65 mmHG: No New Acute Mental Status Change: No Is the patient on CPAP, BIPAP,: No Physician Orders Spine Thoracic 2view (08/22/25 09:03) Chest Portable (08/22/25 09:10) Vital Signs Date Time Temp Pulse Resp B/P (MAP) Pulse Ox O2 Delivery O2 Flow Rate FiO2 08/22/25 12:22 98.1 87 16 145/89 (107) 94 98.1 08/22/25 12:22 145/88 08/22/25 11:11 159/95 08/22/25 11:06 75 13 95 Room Air* 0 21 08/22/25 11:06 98.2 75 13 159/95 (116) 95 98.2 08/22/25 09:45 75 159/95 08/22/25 09:31 18 95 Room Air* 0 21 08/22/25 09:13 98.3 84 16 161/114 (130) 93 98.3 08/22/25 09:13 84 16 93 Room Air 08/22/25 08:39 97.8 86 15 192/113 98 97.8 Laboratory Tests Test 08/22/25 09:24 White Blood Count 10.9 10^3/uL (4.4-10.8) H Medications Medications Dose Ordered Sig/Yasmine Route Start Time Stop Time Status Last Admin Dose Admin Acetaminophen/ Hydrocodone Bitart 1 tab ONCE ONCE PO 08/22/25 09:15 08/22/25 09:16 DC 08/22/25 09:47 Albuterol 5 mg ONCE ONCE NEB 08/22/25 09:15 08/22/25 09:16 DC 08/22/25 09:31 Clonidine HCl 0.2 mg ONCE ONCE PO 08/22/25 11:15 08/22/25 11:16 DC 08/22/25 11:11 Ipratropium [place] 0.5 mg ONCE ONCE NEB 08/22/25 09:15 08/22/25 09:16 DC 08/22/25 09:31 Methylprednisolone Sodium Succinate 125 mg ONCE ONCE IV 08/22/25 09:15 08/22/25 09:16 DC 08/22/25 11:03 Departure 1 Departure Time of Disposition: 09:09 Impression: Primary Impression: Hypertensive emergency Disposition: ADMITTED INPATIENT Admit to: Med Surg Condition: Guarded Critical Care Note Critical Care Time?: Yes (90 min-critical care time only) Critical care comment: Placed on oxygen Stability Stability form required: No Heart Score Heart Score: Heart Score Response (Comments) Value History N/A 0 EKG N/A 0 Age N/A 0 Risk Factors N/A 0 Troponin N/A 0 Total 0 ORALIA MONAHAN MD Aug 22, 2025 09:10
[2025-08-22] MEDS: IPRATROPIUM BROM 0.5 MG/2.5ML INH SOL NEB ONE (09:31)
[2025-08-22] MEDS: ALBUTEROL SULF 2.5 MG/0.5ML(0.5%) NEB SOLN NEB ONE (09:31)
[2025-08-22 09:38] LABS: Hematocrit 42.6 % (36.0-46.0); Hemoglobin 14.4 g/dL (12.2-16.2); Mean Corpuscular Hemoglobin 29.3 pg (28.0-32.0); Mean Corpuscular Volume 87.0 fL (80.0-100.0); Nucleated Red Blood Cells % 0.2 %
[2025-08-22] MEDS: LABETALOL HCL 20 MG/4 ML VL IV ONE (09:45)
[2025-08-22 09:47] LABS: Chloride 106 mmol/L (98-107); Potassium 4.0 mmol/L (3.5-5.1); Sodium 140 mmol/L (136-145)
[2025-08-22] MEDS: HYDROcodone-ACET 5/325MG TAB PO ONE (09:47)
[2025-08-22 09:48] LABS: Anion Gap 7 (5-15); Carbon Dioxide 27 mmol/L (20-31)
[2025-08-22 09:49] LABS: Calcium 9.6 mg/dL (8.7-10.4)
--- NOTE | 2025-08-22 09:50 | DVH ---
XY SPINE THORACIC 2VIEW, HISTORY: pain TECHNICAL DATA: Frontal, swimmer's and lateral views were obtained of the thoracic spine. COMPARISON: XR CHEST 2 VIEW on DOS: 07/07/25, CR LUMBAR SPINE 2-3 VIEW on DOS: 09/24/24 FINDINGS: Thoracic alignment is anatomic. Disk heights are maintained. Vertebral body heights are maintained an d there is no endplate defect. Paraspinal soft tissues are within normal limits. IMPRESSION: Unremarkable thoracic spine series.
[2025-08-22 09:53] LABS: BUN/Creatinine Ratio 17.7 (10.0-20.0); Blood Urea Nitrogen 11 mg/dL (9-23); Glucose 83 mg/dL (74-106)
--- NOTE | 2025-08-22 09:53 | DVH ---
XY CHEST PORTABLE, HISTORY: sob COMPARISON: XR CHEST 2 VIEW on DOS: 07/07/25, CR CHEST 2 VIEW on DOS: 12/31/23, CHEST PORTABLE on DOS: XR CHEST 2 VIEW on DOS: 07/07/25, CR CHEST 2 VIEW on DOS: 12/31/23, CHEST PORTABLE on DOS: 01/24/21 TECHNICAL DATA: 1 view of the chest was obtained. FINDINGS: Lines and tubes: None Cardiomediastinal silhouette: normal Pulmonary vasculature: normal Lung expansion: normal Lung airspace: normal Lung interstitium: normal Pleura: normal Pneumothorax: no Bones: Unremarkable Other: no IMPRESSION: No acute intrathoracic abnormality.
[2025-08-22] MEDS: methylPREDNISolone SOD SUCC 125 MG/2 ML VL IV ONE (11:03)
[2025-08-22 11:06] VITALS: PULSE 75; RESP 13; O2SAT 95
[2025-08-22 11:55] LABS: Urine Protein, UAD 1+ (Negative)
[2025-08-22 12:22] VITALS: BP 145/89; PULSE 87; RESP 16; TEMP 98.1; O2SAT 94
[2025-08-22] MEDS: KETOROLAC TROMETH 30 MG/ML 1ML VIAL IV ONE (13:04)
== END 2025-08-22 13:51 | disposition left against medical advice (07) ==
LOC: ER 08:37
DX: I16.1 Hypertensive emergency (principal); M54.9 Dorsalgia, unspecified; I10 Essential (primary) hypertension; E78.5 Hyperlipidemia, unspecified; F41.9 Anxiety disorder, unspecified; J45.909 Unspecified asthma, uncomplicated; F17.210 Nicotine dependence, cigarettes, uncomplicated; Z98.51 Tubal ligation status; Z91.030 Bee allergy status
CPT/HCPCS: 36415; 71045; 72070; 80048; 81001; 84484; 85025; 85379; 94640; 96374; 96375; 99284; J1885; J2919